=== PATIENT | female | born 1960 | race Caucasian/White ===

== ENCOUNTER 2017-09-25 12:18 | Emergency (ER) | payer MEDICARE ==
[~2017-09-25] VITALS: Ht 154.9 cm; Wt 44.1 kg
[2017-09-25 12:40] VITALS: Ht 154.9 cm; Wt 44.1 kg
[2017-09-25] MEDS ORDERED: KEPPRA500 MG PO (12:41)
[2017-09-25] MEDS ORDERED: DILANTIN100 MG PO (17:07)
[2017-09-25 17:24] VITALS: BP 126/84
== END 2017-09-25 17:26 | disposition home or self-care (01) ==
LOC: D.ER 12:18
DX: G40.909 Epilepsy, unspecified, not intractable, without status epilepticus (principal); M79.605 Pain in left leg; M79.604 Pain in right leg; F17.200 Nicotine dependence, unspecified, uncomplicated